=== PATIENT | male | born 1960 | race American Indian/Alaskan Native ===

== ENCOUNTER 2021-08-16 00:17 | Observation (INO) | payer BC ==
--- NOTE | 2021-08-16 00:21 | Emergency Department Report ---
ED General Adult HPI - General Chief complaint: Dyspnea/Respdistress Stated complaint: AURA Time Seen by Provider: 08/16/21 00:19 Source: patient, EMS ( EMS documentation not available at time of chart dictation . Verbal report received from emergency medical services), RN notes reviewed Mode of arrival: Stretcher Limitations: No Limitations - History of Present Illness Initial comments: This is a pleasant and cooperative 60-year-old gentleman, with a history of hypertension, tobacco use, who has received 2 COVID-19 vaccinations but no booster, presenting to the ER today with a complaint of painless high blood pressure and painless shortness of breath. EMS reports that patient is saturating 88/89% on room air in the field. The patient denies physical pain, DVT/PE risk factors. To the best of his knowledge, has not been tested for obstructive lung disease. Denies additional injuries and complaints. He does not describe exacerbating or relieving factors. Typically sleeps on 1-2 pillows at night in bed by himself. -: Gradual Quality: constant Improves with: none Worsens with: none Associated Symptoms: denies other symptoms, shortness of breath - Related Data Previous Rx's Medication Instructions Recorded Last Taken Type Albuterol Sulfate [Proair 90 mcg IH Q4HR PRN #2 aer.pow.ba 08/16/21 Unknown Rx Respiclick] Ipratropium (Nf) [Atrovent] 2 puff IH Q6HR PRN #1 inha 08/16/21 Unknown Rx Nicotine Polacrilex [Nicotine Gum] 4 mg BC PRN #1 pack 08/16/21 Unknown Rx predniSONE [Deltasone] 40 mg PO QDAY #8 tab 08/16/21 Unknown Rx Allergies Allergy/AdvReac Type Severity Reaction Status Date / Time No Known Allergies Allergy Unverified 08/16/21 00:29 ED Review of Systems ROS: Stated complaint: AURA Other details as noted in HPI Comment: All other systems reviewed and negative Respiratory: SOB with exertion ED Past Medical Hx - Medications Home Medications: Home Medications Medication Instructions Recorded Confirmed Last Taken Type Albuterol Sulfate [Proair 90 mcg IH Q4HR PRN #2 aer.pow.ba 08/16/21 Unknown Rx Respiclick] Ipratropium (Nf) [Atrovent] 2 puff IH Q6HR PRN #1 inha 08/16/21 Unknown Rx Nicotine Polacrilex [Nicotine Gum] 4 mg BC PRN #1 pack 08/16/21 Unknown Rx predniSONE [Deltasone] 40 mg PO QDAY #8 tab 08/16/21 Unknown Rx ED Physical Exam - General Limitations: No Limitations General appearance: alert, in no apparent distress - Head Head exam: Present: atraumatic, normocephalic - Eye Eye exam: Present: normal appearance, EOMI. Absent: nystagmus - ENT ENT exam: Present: normal exam, normal orophraynx, mucous membranes moist, normal external ear exam - Neck Neck exam: Present: normal inspection, full ROM. Absent: tenderness, meningismus - Respiratory Respiratory exam: Present: decreased breath sounds. Absent: respiratory distress, wheezes, rhonchi - Cardiovascular Cardiovascular Exam: Present: regular rate, normal rhythm, normal heart sounds. Absent: bradycardia, tachycardia, irregular rhythm, systolic murmur, diastolic murmur, rubs, gallop - GI/Abdominal GI/Abdominal exam: Present: soft. Absent: distended, tenderness, guarding, rebound, rigid, pulsatile mass - Rectal Rectal exam: Present: deferred - Extremities Exam Extremities exam: Present: normal inspection, full ROM, other (2+ pulses noted in the bilateral upper and lower extremities. There is no palpable cord. negative Homans sign. Muscular compartments are soft. The pelvis is stable.). Absent: pedal edema, calf tenderness - Back Exam Back exam: Present: normal inspection, full ROM. Absent: tenderness, CVA tenderness (R), CVA tenderness (L), paraspinal tenderness, vertebral tenderness - Neurological Exam Neurological exam: Present: alert, oriented X3, other (No facial droop. Tongue midline. Extraocular movements intact bilaterally. Facial sensation intact to light touch in V1, V2, V3 distribution bilaterally. 5 and a 5 strength in 4 extremities. Sensation intact to light touch in 4 extremities.). Absent: motor sensory deficit - Psychiatric Psychiatric exam: Present: normal affect, normal mood - Skin Skin exam: Present: warm, dry, intact, normal color. Absent: rash ED Course Vital Signs 08/16/21 08/16/21 00:19 01:13 Temperature 98.7 F Pulse Rate 96 H Pulse Rate [ 68 Bilateral] Respiratory 18 Rate Respiratory 20 Rate [Bilateral ] Blood Pressure 193/112 O2 Sat by Pulse 97 Oximetry - Reevaluation(s) Reevaluation #1: 08/16/21 01:30 Differential diagnosis, including but not limited to: Obstructive sleep apnea, pulmonary hypertension, COPD, pneumonia, CHF, anemia, pericardial effusion Hypertensive cardiomyopathy Assessment and plan: 60-year-old gentleman, presenting with painless shortness of breath. He is not currently tachycardic, tachypneic, he denies DVT/PE risk factors, and he is low risk by Wells criteria for pulmonary embolism. Suspect undiagnosed bronchitis or COPD. EKG not suggestive of effusion or tamponade. Chest x-ray essentially clear. Physical exam noncontributory. Place patient on monitor technician. Obtain appropriate laboratory studies, treat empirically with albuterol, Atrovent, hydralazine and steroids. Reassess. Discussed this with the patient. He is agreeable to the plan of care. 08/16/21 03:00 D-dimer elevated. CTA chest obtained. Suggest pneumonia or CHF. Lasix and antibiotics ordered. Admit to hospital service for acute hypoxic respiratory failure, acute shortness of breath, and hypertensive urgency 08/16/21 03:10 Dr Friedman to admit to [facility] ED Medical Decision Making - Lab Data Result diagrams: 08/16/21 00:51 08/16/21 00:51 Vital Signs 08/16/21 08/16/21 00:19 01:13 Temperature 98.7 F Pulse Rate 96 H Pulse Rate [ 68 Bilateral] Respiratory 18 Rate Respiratory 20 Rate [Bilateral ] Blood Pressure 193/112 O2 Sat by Pulse 97 Oximetry Lab Results 08/16/21 08/16/21 Range/Units 00:51 00:51 WBC 6.3 (4.5-11.0) K/mm3 RBC 5.37 H (3.65-5.03) M/mm3 Hgb 15.2 (11.8-15.2) gm/dl Hct 45.4 (35.5-45.6) % MCV 84 (84-94) fl MCH 28 (28-32) pg MCHC 34 (32-34) % RDW 13.5 (13.2-15.2) % Plt Count 175 (140-440) K/mm3 Lymph % (Auto) 24.5 (13.4-35.0) % Jerome % (Auto) 5.2 (0.0-7.3) % Eos % (Auto) 4.5 H (0.0-4.3) % Baso % (Auto) 0.9 (0.0-1.8) % Lymph # (Auto) 1.5 (1.2-5.4) K/mm3 Jerome # (Auto) 0.3 (0.0-0.8) K/mm3 Eos # (Auto) 0.3 (0.0-0.4) K/mm3 Baso # (Auto) 0.1 (0.0-0.1) K/mm3 Seg Neutrophils % 64.9 (40.0-70.0) % Seg Neutrophils # 4.1 (1.8-7.7) K/mm3 PT 13.2 (12.2-14.9) Sec. INR 0.91 (0.87-1.13) - EKG Data -: EKG Interpreted by Nm EKG shows normal: sinus rhythm Rate: normal - EKG Data 08/16/21 01:28 The EKG is interpreted at 0100 a.m. Sinus rhythm, rate 86 bpm. Left axis deviation, left ventricular hypertrophy, QTC 4 6 7 ms, motion artifact. Abnormal EKG. Not a STEMI. The patient denies chest pain - Radiology Data Radiology results: pending, report reviewed, image reviewed CHEST 1 VIEW INDICATION / CLINICAL INFORMATION: Dyspnea. COMPARISON: Chest x- ray 12/13/2009 FINDINGS: SUPPORT DEVICES: None. HEART / MEDIASTINUM: Stable interval appearance of the cardiomediastinal silhouette. LUNGS / PLEURA: No significant pulmonary abnormality. BONES: No significant osseous abnormality. ADDITIONAL FINDINGS: No significant additional findings. IMPRESSION: 1. No active cardiopulmonary disease. Signer Name: Wiley Mahoney II, MD Signed: 08/16/2021 12:17 AM Workstation Name: [id number] CTA CHEST WITH CONTRAST INDICATION / CLINICAL INFORMATION: Acute dyspnea, hypoxia. TECHNIQUE: Axial CT images were obtained through the chest after injection of 100 cc Omnipaque 350 IV contrast. 3 plane MIP and/or 3D reconstructions were produced. All CT scans at this location are performed using CT dose reduction for ALARA by means of automated exposure control. COMPARISON: Chest x-ray 08/16/2021 FINDINGS: VASCULAR FINDINGS: PULMONARY ARTERY: Pulmonary artery is normal in size. No filling defects are present compatible with pulmonary artery embolus.. THORACIC AORTA: No significant abnormality. CORONARY ARTERY CALCIFICATION: Absent -- None. NONVASCULAR FINDINGS: LOWER NECK: Soft tissues and musculature of the lower neck demonstrate no significant abnormality. The thyroid demonstrates no significant abnormality. HEART: No significant abnormality. MEDIASTINUM / NORA: No significant abnormality. ESOPHAGUS: No significant abnormality. LYMPH NODES: No adenopathy within the axilla, mediastinum, or nora. LUNGS: Smoothly thickened interlobular septal lines are minimally increased bilaterally within the lung bases. Additionally areas of groundglass attenuation are present within the lower lobes and dependent upper lobes. PLEURA: No pleural effusion. No pneumothorax. THORACIC SOFT TISSUES: No significant abnormality of the chest wall or upper thoracic musculature. BONES: No significant skeletal abnormalities. ADDITIONAL CHEST FINDINGS: None. UPPER ABDOMEN: No significant abnormality. IMPRESSION: 1. No CT evidence for pulmonary embolism. 2. Appearance of the lungs suggestive for diagnostic considerations including interstitial pulmonary edema and interstitial pneumonia. Signer Name: Wiley Mahoney II, MD Signed: 08/16/2021 1:53 AM Workstation Name: [id number] Critical Care Time: Yes Critical care time in (mins) excluding proc time.: 35 Critical care attestation.: If time is entered above; I have spent that time in minutes in the direct care of this critically ill patient, excluding procedure time. ED Disposition Clinical Impression: Acute respiratory failure with hypoxia, Hypertensive urgency, Hyperglycemia, Encounter for tobacco use cessation counseling, Dyspnea Disposition: ADMITTED INPATIENT Is pt being admited?: Yes Does the pt Need Aspirin: Yes Condition: Good Instructions: Hypertension (ED) Additional Instructions: Recommend that patient remain compliant with blood pressure medication. Long- term complications of hypertension include stroke, heart attack, disability, loss of vision, paralysis, and loss of quality of life. Recommended patient complete COVID-19 vaccination booster, and discontinue tobacco consumption. Please take the nicotine gum as directed to assist. Patient may have undiagnosed emphysema or chronic obstructive pulmonary disease. Take the albuterol, Atrovent, steroids as directed, and please follow-up within the next week with your outpatient primary care doctor or outbound sales specialist, such as Dr. Anthony, for formal pulmonary testing to evaluate for possible COPD. Advance diet as tolerated, consume a low-salt diet. Please return to the emergency room right away with new pain, worsened pain, migration of pain, projectile vomiting, change in mental status, confusion, inability tolerate liquid feeds, new, worsened or different symptoms not present on the initial emergency room evaluation Prescriptions: Ipratropium (Nf) [Atrovent] 2 puff IH Q6HR PRN #1 inha PRN Reason: Wheezing predniSONE [Deltasone] 40 mg PO QDAY #8 tab Nicotine Polacrilex [Nicotine Gum] 4 mg BC PRN #1 pack Albuterol Sulfate [Proair Respiclick] 90 mcg IH Q4HR PRN #2 aer.pow.ba PRN Reason: Wheezing Referrals: SHERRI ANTHONY MD [Staff Physician] - 3-5 Days [facility] [Provider Group] - 3-5 Days Forms: Work/School Release Form(ED)
[2021-08-16] MEDS ORDERED: ALBUTEROL 2.5 MG/3 ML NEBU IH ONE (00:45)
[2021-08-16] MEDS ORDERED: IPRATROPIUM 0.02% NEBU 2.5 ML IH ONE (00:45)
[2021-08-16] MEDS ORDERED: methylPREDNISolone Sod Succinate 125 MG/2 ML INJ IV ONE (00:46)
[2021-08-16 01:14] LABS: Basophils # (Auto) 0.1 K/mm3 (0.0-0.1); Basophils % (Auto) 0.9 % (0.0-1.8); Eosinophils # (Auto) 0.3 K/mm3 (0.0-0.4); Eosinophils % (Auto) 4.5 % (0.0-4.3); Hematocrit 45.4 % (35.5-45.6); Hemoglobin 15.2 gm/dl (11.8-15.2); Lymphocytes # (Auto) 1.5 K/mm3 (1.2-5.4); Lymphocytes % (Auto) 24.5 % (13.4-35.0); Mean Corpuscular HGB Conc 34 % (32-34); Mean Corpuscular Volume 84 fl (84-94); Monocytes # (Auto) 0.3 K/mm3 (0.0-0.8); Monocytes % (Auto) 5.2 % (0.0-7.3); Platelet Count 175 K/mm3 (140-440); Red Blood Count 5.37 M/mm3 (3.65-5.03); Red Cell Distribution Width 13.5 % (13.2-15.2)
--- NOTE | 2021-08-16 01:21 | XRay Report ---
CHEST 1 VIEW INDICATION / CLINICAL INFORMATION: Dyspnea. COMPARISON: Chest x-ray 12/13/2009 FINDINGS: SUPPORT DEVICES: None. HEART / MEDIASTINUM: Stable interval appearance of the cardiomediastinal silhouette. LUNGS / PLEURA: No significant pulmonary abnormality. BONES: No significant osseous abnormality. ADDITIONAL FINDINGS: No significant additional findings. IMPRESSION: 1. No active cardiopulmonary disease. Signer Name: Wiley Mahoney II, MD Signed: 08/16/2021 1:17 AM Workstation Name: [id number]
[2021-08-16] MEDS ORDERED: hydrALAZINE 20 MG/1 ML INJ IV ONE (01:26)
[2021-08-16 01:27] LABS: INR 0.91 (0.87-1.13)
[2021-08-16 01:28] LABS: Partial Thromboplastin Time 30.7 Sec. (24.2-36.6)
[2021-08-16 01:43] LABS: Alanine Aminotransferase 14 units/L (7-56); Albumin 4.1 g/dL (3.9-5); BUN/Creatinine Ratio 11; Blood Urea Nitrogen 15 mg/dL (9-20); Calcium 8.9 mg/dL (8.4-10.2); Hemolysis Index 11
[2021-08-16] MEDS ORDERED: INSULIN REGULAR, HUMAN 100 UNITS/1 ML IV ONE (01:44)
[2021-08-16] MEDS ORDERED: SODIUM CHLORIDE 0.9% 500 ML 500 ML IV SCH (02:00)
--- NOTE | 2021-08-16 02:58 | Cat Scan Report ---
CTA CHEST WITH CONTRAST INDICATION / CLINICAL INFORMATION: Acute dyspnea, hypoxia. TECHNIQUE: Axial CT images were obtained through the chest after injection of 100 cc Omnipaque 350 IV contrast. 3 plane MIP and/or 3D reconstructions were produced. All CT scans at this location are per formed using CT dose reduction for ALARA by means of automated exposure control. COMPARISON: Chest x-ray 08/16/2021 FINDINGS: VASCULAR FINDINGS: PULMONARY ARTERY: Pulmonary artery is normal in size. No filling defects are present compatible with pulmonary artery embolus.. THORACIC AORTA: No significant abnormality. CORONARY ARTERY CALCIFICATION: Absent -- None. NONVASCULAR FINDINGS: LOWER NECK: Soft tissues and musculature of the lower neck demonstrate no significant abnormality. Th e thyroid demonstrates no significant abnormality. HEART: No significant abnormality. MEDIASTINUM / ZHANNA: No significant abnormality. ESOPHAGUS: No significant abnormality. LYMPH NODES: No adenopathy within the axilla, mediastinum, or zhanna. LUNGS: Smoothly thickened interlobular septal lines are minimally increased bilaterally within the christiano ng bases. Additionally areas of groundglass attenuation are present within the lower lobes and depend ent upper lobes. PLEURA: No pleural effusion. No pneumothorax. THORACIC SOFT TISSUES: No significant abnormality of the chest wall or upper thoracic musculature. BONES: No significant skeletal abnormalities. ADDITIONAL CHEST FINDINGS: None. UPPER ABDOMEN: No significant abnormality. IMPRESSION: 1. No CT evidence for pulmonary embolism. 2. Appearance of the lungs suggestive for diagnostic considerations including interstitial pulmonary edema and interstitial pneumonia. Signer Name: Wiley Mahoney II, MD Signed: 08/16/2021 2:53 AM Workstation Name: [id number]
[2021-08-16] MEDS ORDERED: AZITHROMYCIN/NS 500 MG/250 ML 500 MG/250 ML BAG IV ONE (02:59)
[2021-08-16] MEDS ORDERED: cefTRIAXone/NS 1 GM/50 ML 1 GM/50 ML BAG IV ONE (02:59)
[2021-08-16] MEDS ORDERED: FUROSEMIDE 40 MG/4 ML INJ IV ONE (02:59)
[2021-08-16] MEDS ORDERED: ASPIRIN 81 MG TAB CHEW PO ONE (03:01)
[2021-08-16] MEDS ORDERED: MORPHINE 2 MG/1 ML INJ IV PRN (04:27)
[2021-08-16] MEDS ORDERED: ONDANSETRON 4 MG/2 ML INJ IV PRN (04:27)
[2021-08-16] MEDS ORDERED: DEXTROSE 50% IN WATER (25GM) 50 ML SYRINGE IV PRN (04:27)
[2021-08-16] MEDS ORDERED: ACETAMINOPHEN 325 MG TAB PO PRN (04:27)
[2021-08-16] MEDS ORDERED: HYDROmorphone 1 MG/1 ML INJ IV PRN (04:27)
[2021-08-16] MEDS ORDERED: ALBUTEROL 2.5 MG/3 ML NEBU IH PRN (04:27)
--- NOTE | 2021-08-16 04:35 | History and Physical Report ---
History of Present Illness Date of examination: 08/16/21 Date of admission: 08/16/21 Chief complaint: Dyspnea Respiratory distress History of present illness: 60-year-old male with history of hypertension, tobacco abuse was brought to the emergency room because of high blood pressure and painless shortness of breath. Patient complained of orthopnea and swelling of the legs EMS reports that patient is saturating 88/89% on room air in the field. Typically sleeps on 1-2 pillows at night in bed by himself. In the emergency room patient is found to have acute respiratory failure also congestive heart failure exacerbation. Patient proBNP is 952.6 CTA chest Suggest pneumonia or CHF.'s were going to admit the patient we will put the patient on neb treatment IV Lasix and order echocardiogram Past History Past Medical History: diabetes, hypertension Past Surgical History: No surgical history Social history: smoking Family history: hypertension Medications and Allergies Allergies Allergy/AdvReac Type Severity Reaction Status Date / Time No Known Allergies Allergy Unverified 08/16/21 00:29 Home Medications Medication Instructions Recorded Confirmed Last Taken Type Albuterol Sulfate [Proair 90 mcg IH Q4HR PRN #2 aer.pow.ba 08/16/21 Unknown Rx Respiclick] Ipratropium (Nf) [Atrovent] 2 puff IH Q6HR PRN #1 inha 08/16/21 Unknown Rx Nicotine Polacrilex [Nicotine Gum] 4 mg BC PRN #1 pack 08/16/21 Unknown Rx predniSONE [Deltasone] 40 mg PO QDAY #8 tab 08/16/21 Unknown Rx Active Meds: Active Medications Sodium Chloride (Nacl 0.9% 500 Ml) 500 mls @ 50 mls/hr IV DIRECT TRES Last Admin: 08/16/21 02:28 Dose: 50 mls/hr Review of Systems All systems: negative Cardiovascular: orthopnea, edema, shortness of breath, dyspnea on exertion, paroxysmal nocturnal dyspnea Respiratory: shortness of breath, dyspnea on exertion Exam - Constitutional Vitals: Temp Pulse Resp BP Pulse Ox 98.7 F 68 20 193/112 97 08/16/21 00:19 08/16/21 01:13 08/16/21 01:13 08/16/21 00:19 08/16/21 00:19 General appearance: Present: no acute distress, well-nourished - EENT Eyes: Present: PERRL ENT: hearing intact, clear oral mucosa - Neck Neck: Present: supple, normal ROM - Respiratory Respiratory effort: normal Respiratory: bilateral: CTA - Cardiovascular Heart Sounds: Present: S1 & S2. Absent: rub, click - Extremities Extremities: pulses symmetrical, No edema Peripheral Pulses: within normal limits - Abdominal General gastrointestinal: Present: soft, non-tender, non-distended, normal bowel sounds Male genitourinary: Present: normal - Integumentary Integumentary: Present: clear, warm, dry - Musculoskeletal Musculoskeletal: gait normal, strength equal bilaterally - Psychiatric Psychiatric: appropriate mood/affect, intact judgment & insight - Neurologic Neurologic: CNII-XII intact, moves all extremities HEART Score - HEART Score Troponin: Troponin T < 0.010 ng/mL (0.00-0.029) 08/16/21 00:51 Results - Labs CBC & Chem 7: 08/16/21 00:51 05 00:51 Labs: Laboratory Last Values WBC 6.3 K/mm3 (4.5-11.0) 08/16/21 00:51 RBC 5.37 M/mm3 (3.65-5.03) H 08/16/21 00:51 Hgb 15.2 gm/dl (11.8-15.2) 08/16/21 00:51 Hct 45.4 % (35.5-45.6) 08/16/21 00:51 MCV 84 fl (84-94) 08/16/21 00:51 MCH 28 pg (28-32) 08/16/21 00:51 MCHC 34 % (32-34) 08/16/21 00:51 RDW 13.5 % (13.2-15.2) 08/16/21 00:51 Plt Count 175 K/mm3 (140-440) 08/16/21 00:51 Lymph % (Auto) 24.5 % (13.4-35.0) 08/16/21 00:51 Harnett % (Auto) 5.2 % (0.0-7.3) 08/16/21 00:51 Eos % (Auto) 4.5 % (0.0-4.3) H 08/16/21 00:51 Baso % (Auto) 0.9 % (0.0-1.8) 08/16/21 00:51 Lymph # (Auto) 1.5 K/mm3 (1.2-5.4) 08/16/21 00:51 Harnett # (Auto) 0.3 K/mm3 (0.0-0.8) 08/16/21 00:51 Eos # (Auto) 0.3 K/mm3 (0.0-0.4) 08/16/21 00:51 Baso # (Auto) 0.1 K/mm3 (0.0-0.1) 08/16/21 00:51 Seg Neutrophils % 64.9 % (40.0-70.0) 08/16/21 00:51 Seg Neutrophils # 4.1 K/mm3 (1.8-7.7) 08/16/21 00:51 PT 13.2 Sec. (12.2-14.9) 08/16/21 00:51 INR 0.91 (0.87-1.13) 08/16/21 00:51 APTT 30.7 Sec. (24.2-36.6) 08/16/21 00:51 D-Dimer 314.88 ng/mlDDU (0-234) H 08/16/21 Unknown Sodium 136 mmol/L (137-145) L 08/16/21 00:51 Potassium 4.3 mmol/L (3.6-5.0) 08/16/21 00:51 Chloride 99.6 mmol/L (98-107) 08/16/21 00:51 Carbon Dioxide 26 mmol/L (22-30) 08/16/21 00:51 Anion Gap 15 mmol/L 08/16/21 00:51 BUN 15 mg/dL (9-20) 08/16/21 00:51 Creatinine 1.4 mg/dL (0.8-1.3) H 08/16/21 00:51 Estimated GFR > 60 ml/min 08/16/21 00:51 BUN/Creatinine Ratio 11 % 08/16/21 00:51 Glucose 330 mg/dL (75-100) H 08/16/21 00:51 Calcium 8.9 mg/dL (8.4-10.2) 08/16/21 00:51 Magnesium 2.00 mg/dL (1.7-2.3) 08/16/21 00:51 Total Bilirubin 0.60 mg/dL (0.1-1.2) 08/16/21 00:51 AST 12 units/L (5-40) 08/16/21 00:51 ALT 14 units/L (7-56) 08/16/21 00:51 Alkaline Phosphatase 82 units/L (35-129) 08/16/21 00:51 Troponin T < 0.010 ng/mL (0.00-0.029) 08/16/21 00:51 NT-Pro-B Natriuret Pep 952.6 pg/mL (0-900) H 08/16/21 00:51 Total Protein 6.3 g/dL (6.3-8.2) 08/16/21 00:51 Albumin 4.1 g/dL (3.9-5) 08/16/21 00:51 Albumin/Globulin Ratio 1.9 % 08/16/21 00:51 - Imaging and Cardiology Chest x-ray: report reviewed CT scan - chest: report reviewed Assessment and Plan VTE prophylaxis?: Chemical Plan of care discussed with patient/family: Yes - Patient Problems (1) CHF exacerbation Status: Acute Plan to address problem: Admit the patient to the medical telemetry. Cardiac diet 1800 kcal ADA diet. Oxygen via nasal cannula 3 L/min. Fluid restriction. Maintain input output. Daily weight. Lasix 40 mg IV every 12 hours. Echocardiogram (2) Acute respiratory failure with hypoxia Status: Acute Plan to address problem: Oxygen via nasal cannula 3 L/min. DuoNeb by nebulizer every 4 hours as needed. Albuterol via nebulizer every 4 hours (3) Tobacco abuse Status: Acute Plan to address problem: We counseled patient regarding quitting smoking. We put the patient on nicotine patch (4) Dyspnea Status: Acute Plan to address problem: Oxygen via nasal cannula 3 L/min. DuoNeb by nebulizer every 4 hours as needed. Albuterol via nebulizer every 4 hours (5) Hyperglycemia Status: Acute Plan to address problem: 1800 kcal ADA diet . Humalog sliding scale moderate dose coverage as Accu-Chek before meals and at bedtime. Diabetic education (6) Hypertensive urgency Status: Acute Plan to address problem: Hydralazine 10 mg IV every 6 hours as needed. We continue the home medication (7) DVT prophylaxis Status: Acute Plan to address problem: Heparin 5000 units subcu every 12 hours for DVT prophylaxis. Pepcid 20 mg p.o. twice daily for GI prophylaxis. Patient is a full code
[2021-08-16] MEDS: FUROSEMIDE 40 MG/4 ML INJ IV SCH ×2 (06:55→16:59)
[2021-08-16] MEDS ORDERED: INSULIN LISPRO 100 UNIT/ML SUB-Q SCH (07:30)
[2021-08-16] MEDS: HEPARIN 5,000 UNIT/1 ML VIAL SUB-Q SCH ×2 (09:24→21:32)
[2021-08-16] MEDS: FAMOTIDINE 20 MG TAB PO SCH ×2 (09:24→21:32)
[2021-08-16] MEDS: IPRATROPIUM/ALBUTEROL SULFATE 3 ML AMPUL.NEB IH SCH ×3 (09:25→23:47)
[2021-08-16] MEDS: LOSARTAN 50 MG TAB PO SCH (12:08)
[2021-08-16] MEDS: INSULIN NPH/REGULAR 70/30 INJ SUB-Q SCH ×2 (12:08→17:00)
[2021-08-16] MEDS: MULTIVITAMINS ,THERAPEUTIC TAB PO SCH (12:08)
[2021-08-16] MEDS: carvediloL 6.25 MG TAB PO SCH ×2 (12:08→21:31)
[2021-08-16] MEDS: NIFEdipine XL 30 MG TAB PO SCH (12:08)
[2021-08-16] MEDS: INSULIN REGULAR, HUMAN 100 UNITS/1 ML SUB-Q SCH ×2 (12:09→17:00)
--- NOTE | 2021-08-16 15:26 | Event Note ---
Date: 08/16/21 The patient was evaluated, and he was found to be hemodynamically stable. #Acute on chronic systolic heart failure - Continue CHF exacerbation protocol: Telemetry, Strict I/O, monitor urine output every shift, daily weights, afterload reduction, low-sodium diet, and fluid restriction of approximately 1.5 mL/day, IV Lasix 40 mg twice daily - Supplemental oxygen: 2 L nasal cannula - ProBNP on admission: 952 - TTE (08/16/2021) revealing EF 45-50%, normal-sized LV, mildly decreased LV systolic function, mild concentric LVH, mild global hypokinesis of the LV, mild diastolic dysfunction. - Continue to monitor #Acute hypoxic respiratory failure - etiology: Likely volume overload in the setting of hypertensive emergency - baseline oxygen requirements: Room air - supplemental oxygen: 2 L nasal cannula - Continue protocol: continue pulse oximetry, wean oxygen as tolerated, ordered incentive spirometry and educated patient on how to use it and its importance. Should improve with further IV diuresis and blood pressure control - continue to monitor #Hypertensive emergencyimproving Patient endorses being nonadherent with his antihypertensives and following up with his primary care provider. Patient unable to elicit his medications. Starting Coreg 6.25 mg twice daily, losartan 50 mg daily, nifedipine 30 mg daily Blood pressure should continue to improve as IV diuresis continues. Patient counseled at length about the importance of medication compliance and following up with his PCP upon discharge. Patient expresses understanding. Continue to monitor #Non-insulin dependent type II diabetes mellitus with hyperglycemia - hemoglobin A1c: Pending - home regimen: Glipizide 10 mg bid - current regimen: NPH 10 units twice daily, glipizide 10 mg twice daily, and moderate SSI - blood glucose goal 140-180 while inpatient - continue to monitor #Tobacco dependence #Tobacco/Smoking cessation counseling - Counseled patient about the importance of smoking cessation and the possible sequelae as a result of continued tobacco consumption. The patient expresses understanding. -Time: +15 mins #Obesity #Weight loss counseling #Exercise counseling - BMI 30.1 - Counseled patient on the importance of weight loss, incorporating exercise, and dietary changes (lean meats, fresh fruits and vegetables, and water intake). Patient expresses understanding. - Time: +15 min #Coordination of CARE time: 30 minutes. Total visit time equals 30 or more minutes with greater than 50% spent [id number] on coordination of care and counseling. Critical Care Billing: The high probability of a clinically significant, sudden or life threatening deterioration of the [cardiac] system(s) required my full and direct attention, intervention and personal management. The aggregate critical care time was [60] minutes. This time is in addition to time spent performing reported procedures but includes the following: [x] Data Review and interpretation [x] Patient assessment and monitoring of vital signs [x] Documentation [x] Medication orders and management
[2021-08-16] MEDS: glipiZIDE 10 MG TAB PO SCH (16:59)
[2021-08-17] MEDS: INSULIN REGULAR, HUMAN 100 UNITS/1 ML SUB-Q SCH ×3 (03:09→12:01)
[2021-08-17] MEDS: FUROSEMIDE 40 MG/4 ML INJ IV SCH (05:30)
[2021-08-17] MEDS: IPRATROPIUM/ALBUTEROL SULFATE 3 ML AMPUL.NEB IH SCH ×3 (06:09→14:00)
[2021-08-17] MEDS: INSULIN NPH/REGULAR 70/30 INJ SUB-Q SCH (08:28)
[2021-08-17] MEDS: glipiZIDE 10 MG TAB PO SCH (08:29)
[2021-08-17 09:13] LABS: Basophils # (Auto) 0.1 K/mm3 (0.0-0.1); Basophils % (Auto) 0.8 % (0.0-1.8); Eosinophils # (Auto) 0.2 K/mm3 (0.0-0.4); Hematocrit 52.1 % (35.5-45.6); Hemoglobin 17.6 gm/dl (11.8-15.2); Lymphocytes # (Auto) 2.6 K/mm3 (1.2-5.4); Mean Corpuscular HGB Conc 34 % (32-34); Mean Corpuscular Volume 84 fl (84-94); Monocytes # (Auto) 0.6 K/mm3 (0.0-0.8); Platelet Count 203 K/mm3 (140-440); Red Blood Count 6.17 M/mm3 (3.65-5.03)
[2021-08-17] MEDS: NIFEdipine XL 30 MG TAB PO SCH (09:19)
[2021-08-17] MEDS: LOSARTAN 50 MG TAB PO SCH (09:19)
[2021-08-17] MEDS: MULTIVITAMINS ,THERAPEUTIC TAB PO SCH (09:19)
[2021-08-17] MEDS: FAMOTIDINE 20 MG TAB PO SCH (09:19)
[2021-08-17] MEDS: carvediloL 6.25 MG TAB PO SCH (09:20)
[2021-08-17] MEDS: HEPARIN 5,000 UNIT/1 ML VIAL SUB-Q SCH (09:22)
[2021-08-17 09:37] LABS: Calcium 10.3 mg/dL (8.4-10.2)
--- NOTE | 2021-08-17 10:46 | Electrocardiograph Report ---
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
--- NOTE | 2021-08-17 10:48 | Electrocardiograph Report ---
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
--- NOTE | 2021-08-17 11:41 | Vascular Lab Report ---
DUPLEX DOPPLER LOWER EXTREMITY VEINS, BILATERAL INDICATION / CLINICAL INFORMATION: Evaluate for possible DVT. TECHNIQUE: Duplex doppler imaging was performed through the veins of both lower extremities using norman ous compression and other maneuvers. COMPARISON: None available. FINDINGS: RIGHT COMMON FEMORAL VEIN: Negative. RIGHT FEMORAL VEIN: Negative. RIGHT POPLITEAL VEIN: Negative. RIGHT CALF VEINS: Negative. LEFT COMMON FEMORAL VEIN: Negative. LEFT FEMORAL VEIN: Negative. LEFT POPLITEAL VEIN: Negative. LEFT CALF VEINS: Negative. ADDITIONAL FINDINGS: None. IMPRESSION: 1. No sonographic evidence for DVT in either lower extremity. Scribed by: Magdalena Aguirre RDMS, THIERNO, NATALIA Scribed: 08/17/2021 9:33 AM I have reviewed the images, agree with this report, and edited this report as needed. Signer Name: Kamar Medina MD Signed: 08/17/2021 11:37 AM Workstation Name: [id number]
--- NOTE | 2021-08-17 11:52 | Discharge Summary ---
Providers - Providers Date of Admission: 08/16/21 04:27 Date of discharge: 08/17/21 Attending physician: DESTINEY GARCIA MD 08/16/21 04:27 Consult to Dietitian/Nutrition [CONS] Routine Physician Instructions: Reason For Exam: Reason for Consult: Diet education Primary care physician: HOUSING COORDINATOR Hospitalization Reason for admission: Hypertensive emergency, acute on chronic heart failure, acute RF Condition: Good Pertinent studies: Reviewed. Procedures: Bilateral lower extremity venous Dopplers; TTE Hospital course: Patient is a 60-year-old male past medical history of hso-otboeuo-ockgdzvka type 2 diabetes mellitus, hypertension, medication nonadherence, tobacco dependence, and obesity who presented with shortness of breath and uncontrolled blood pressure in the setting of peripheral edema he was found to be secondary to hypertensive emergency. In the ED the patient was hypoxic requiring supplemental oxygen. Additional labs also revealed a proBNP of 952.6. CT angio chest was unremarkable for pulmonary emboli but was suggestive of possible heart failure exacerbation versus pneumonia. Patient was initiated with IV diuresis and a TTE was ordered. TTE revealed EF 45-50% with normal LV systolic size, mildly decreased LV systolic function, mild concentric LVH, and mild global hypokinesis in the LV. Patient has since been weaned off of supplemental oxygen to room air. Patient was counseled at length about the importance of medication compliance and following up with his primary care provider. The patient endorses having multiple hospital admissions for similar presentations after running out of his medications and not seeing his PCP for refills. Patient expressed understanding. Due to an elevated D-dimer of 314.88 bilateral venous Dopplers were performed that were unremarkable for DVT. Patient is medically clear for discharge. Disposition: 01 HOME / SELF CARE / HOMELESS Final Discharge Diagnosis (Prints w/discharge instructions): Acute on chronic systolic heart failure, acute hypoxic respiratory failure, hypertensive emergency, ezt-msbwuve-xkouxvegj type 2 diabetes mellitus with hyperglycemia, noninsulin-dependent type 2 diabetes mellitus with diabetic neuropathy, tobacco dependence, obesity. Time spent for discharge: 45 min Core Measure Documentation - Palliative Care Palliative Care/ Comfort Measures: Not Applicable - Core Measures Any of the following diagnoses?: heart failure - Heart Failure Discharge Requirements MORGAN/ARB for LVSD if EF <40%: Yes Beta mirella at discharge: Yes Exam - Constitutional Vitals: Temp Pulse Resp BP Pulse Ox 97.5 F L 64 16 158/94 100 05/05/22 07:35 08/17/21 07:35 08/17/21 07:35 08/17/21 07:35 08/17/21 07:35 General appearance: Present: no acute distress, well-nourished, obese - EENT Eyes: Present: PERRL, EOM intact ENT: hearing intact, clear oral mucosa, dentition normal - Neck Neck: Present: supple, normal ROM - Respiratory Respiratory effort: normal - Cardiovascular Rhythm: regular Heart Sounds: Present: S1 & S2 - Extremities Extremities: no ischemia, pulses intact, pulses symmetrical, No edema, normal temperature, normal color, Full ROM Peripheral Pulses: within normal limits - Abdominal General gastrointestinal: Present: soft, non-tender, non-distended, normal bowel sounds Male genitourinary: Present: deferred - Rectal Rectal Exam: deferred - Integumentary Integumentary: Present: clear, warm, dry - Musculoskeletal Musculoskeletal: strength equal bilaterally - Psychiatric Psychiatric: appropriate mood/affect, intact judgment & insight, memory intact, cooperative - Neurologic Neurologic: CNII-XII intact, moves all extremities - Allied Health Allied health notes reviewed: nursing Plan Activity: advance as tolerated Diet: low salt, diabetic Additional Instructions: Patient is a 60-year-old male past medical history of owl-qrtgfyz-nipavgrmx type 2 diabetes mellitus, hypertension, medication nonadherence, tobacco dependence, and obesity who presented with shortness of breath and uncontrolled blood pressure in the setting of peripheral edema he was found to be secondary to hypertensive emergency. In the ED the patient was hypoxic requiring supplemental oxygen. Additional labs also revealed a proBNP of 952.6. CT angio chest was unremarkable for pulmonary emboli but was suggestive of possible heart failure exacerbation versus pneumonia. Patient was initiated with IV diuresis and a TTE was ordered. TTE revealed EF 45-50% with normal LV systolic size, mildly decreased LV systolic function, mild concentric LVH, and mild global hypokinesis in the LV. Patient has since been weaned off of supplemental oxygen to room air. Patient was counseled at length about the importance of medication compliance and following up with his primary care provider. The patient endorses having multiple hospital admissions for similar presentations after running out of his medications and not seeing his PCP for refills. Patient expressed understanding. Due to an elevated D-dimer of 314.88 bilateral venous Dopplers were performed that was unremarkable for DVT. Patient is medically clear for discharge. Care Plan Goals: Patient is medically cleared for discharge. Assessment: Patient is a 60-year-old male past medical history of oqo-binaxhw-nezrskdgn type 2 diabetes mellitus, hypertension, medication nonadherence, tobacco dependence, and obesity who presented with shortness of breath and uncontrolled blood pressure in the setting of peripheral edema he was found to be secondary to hypertensive emergency. In the ED the patient was hypoxic requiring supplemen jose c oxygen. Additional labs also revealed a proBNP of 952.6. CT angio chest was unremarkable for pulmonary emboli but was suggestive of possible heart failure exacerbation versus pneumonia. Patient was initiated with IV diuresis and a TTE was ordered. TTE revealed EF 45-50% with normal LV systolic size, mildly decreased LV systolic function, mild concentric LVH, and mild global hypokinesis in the LV. Patient has since been weaned off of supplemental oxygen to room air. Patient was counseled at length about the importance of medication compliance and following up with his primary care provider. The patient endorses having multiple hospital admissions for similar presentations after running out of his medications and not seeing his PCP for refills. Patient expressed understanding. Due to an elevated D-dimer of 314.88 bilateral venous Dopplers were performed that was unremarkable for DVT. Patient is medically clear for discharge. Follow up with: [facility] [Provider Group] - 3-5 Days SHERRI ANTHONY MD [Staff Physician] - 3-5 Days Forms: Work/School Release Form(ED) Prescriptions: Ipratropium (Nf) [Atrovent] 2 puff IH Q6HR PRN #1 inha PRN Reason: Wheezing carvediloL [Coreg] 6.25 mg PO BID #60 tablet Losartan [Cozaar] 50 mg PO QDAY #30 tablet glipiZIDE [Glucotrol] 10 mg PO BIDDIAB #60 tablet Nicotine Polacrilex [Nicotine Gum] 4 mg BC PRN #1 pack Albuterol Sulfate [Proair Respiclick] 90 mcg IH Q4HR PRN #2 aer.pow.ba PRN Reason: Wheezing NIFEdipine XL [Procardia Xl] 30 mg PO QDAY #30 tablet
[2021-08-17 12:22] VITALS: BP 155/92
== END 2021-08-17 16:36 | disposition home or self-care (01) ==
LOC: ED 00:17 → INTOOBSV 04:27 → 4A 04:27
PROVIDERS: ADMIT Hospitalist; ATTEND Student in an Organized Health Care Education/Training Program
DX: J96.01 Acute respiratory failure with hypoxia (principal); I16.0 Hypertensive urgency; I11.0 Hypertensive heart disease with heart failure; I50.23 Acute on chronic systolic (congestive) heart failure; E11.65 Type 2 diabetes mellitus with hyperglycemia; E11.40 Type 2 diabetes mellitus with diabetic neuropathy, unspecified; F17.210 Nicotine dependence, cigarettes, uncomplicated; Z68.30 Body mass index [BMI] 30.0-30.9, adult; Z79.899 Other long term (current) drug therapy; Z98.890 Other specified postprocedural states
CPT/HCPCS: 36415; 71045; 71275; 80048; 80053; 82962; 83735; 83880; 84484; 85025; 85379; 85610; 85730; 93005; 93970; 94640; 94644; 96361; 96365; 96366; 96368; 96372; 96375; 96376; 99291; 99406; C8929; G0378; J0360; J0456; J0696; J1644; J1940; J2930; J7040; Q9967; 93306; 96374; Q0177; J1815